=== PATIENT | female | born 2005 | race Hispanic/Latino ===

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

== ENCOUNTER 2024-06-07 14:43 | Emergency (ER) | payer MEDICAID, OTHER ==
[~2024-06-07] VITALS: Ht 162.6 cm; Wt 113.4 kg
[~2024-06-07 14:43] MED LIST: D-ME1POW16 PO; OSEL75 PO
[2024-06-07 14:57] VITALS: BP 162/86; PULSE 71; RESP 18
[2024-06-07] MEDS ORDERED: AMOX-426 PO (15:32)
== END 2024-06-07 17:02 | disposition home or self-care (01) ==
LOC: EDH 14:43
DX: L02.211 Cutaneous abscess of abdominal wall (principal); E10.9 Type 1 diabetes mellitus without complications; Z79.899 Other long term (current) drug therapy
CPT/HCPCS: 10060; 82948

== ENCOUNTER 2025-05-16 20:22 | Emergency (ER) | payer MEDICAID ==
[~2025-05-16] VITALS: Ht 157.5 cm; Wt 113.4 kg
[~2025-05-16 20:22] MED LIST changes: +AMOX-426 PO
[2025-05-16 20:51] LABS: APPEARANCE,URINE CLEAR (CLEAR); BILIRUBIN,URINE NEGATIVE (NEGATIVE); COLOR,URINE COLORLESS (YELLOW); GLUCOSE, URINE (UA) >=1000 mg/dL (NEGATIVE); KETONES,URINE 5 mg/dL (NEGATIVE); LEUKOCYTE ESTERASE ,URINE NEGATIVE Leu/uL (NEGATIVE); NITRATE,URINE NEGATIVE (NEGATIVE); OCCULT BLOOD,URINE NEGATIVE (NEGATIVE); PROTEIN,URINE NEGATIVE (NEGATIVE); SQUAMOUS EPITHELIAL CELL,UR MANY /HPF (0-2); UROBILINOGEN,URINE 0.2 mg/dL (0.2-1.0); WBC,URINE 0-1 /HPF (0-1)
[2025-05-16 20:53] LABS: BASOPHILS # (AUTO) 0.04 K/uL (0.00-0.20); BASOPHILS % (AUTO) 0.3 % (0.0-5.0); EOSINOPHILS # (AUTO) 0.17 K/uL (0.00-0.70); EOSINOPHILS % (AUTO) 1.3 % (0.0-8.0); IMMATURE GRANULOCYTE ABSOLUTE 0.06 K/uL (0-1); LYMPHOCYTES # (AUTO) 3.6 K/uL (1.0-4.8); LYMPHOCYTES % (AUTO) 28.3 % (21.0-51.0); MEAN CORPUSCULAR HEMOGLOBIN 30.9 pg (27.0-33.0); MEAN CORPUSCULAR HGB CONC 36.9 g/dL (32.0-36.0); MEAN CORPUSCULAR VOLUME 83.7 fL (80-100); MONOCYTES # (AUTO) 0.7 K/uL (0.1-1.0); MONOCYTES % (AUTO) 5.2 % (3.0-13.0); NEUTROPHILS # (AUTO) 8.3 K/uL (1.8-7.7); NEUTROPHILS % (AUTO) 64.4 % (40.0-77.0); PLATELET COUNT (AUTO) 300 K/uL (130-400); RED BLOOD CELL COUNT(AUTO) 4.66 MIL/uL (4.00-5.50); WHITE BLOOD COUNT (AUTO) 12.8 K/uL (4.8-10.8)
[2025-05-16 21:02] LABS: CREATININE 0.7 mg/dL (0.5-1.0); POTASSIUM 3.6 mmol/L (3.5-5.1)
[2025-05-16] MEDS: acetaMINOPHEN 325 MG TAB PO ONE (21:17)
[2025-05-16] MEDS: 0.9%NACL 1000ML 1,000 ML IV ONE (21:50)
[2025-05-16] MEDS: INSULIN humuLIN R 100 UNIT/ML 3ML SQ ONE ×3 (21:53→23:35)
[2025-05-16] MEDS ORDERED: INSULIN humuLIN R 100 UNIT/ML 3ML SQ ONE (22:30)
--- NOTE | 2025-05-16 22:51 | ERN ---
General Chief Complaint: OB<20 weeks gest. Stated Complaint: STOMACH CRAMPING/ UNABLE TO KEEP FOOD DOWN Time Seen by MD: 20:23 Time Seen by Midlevel: 20:23 Source: patient History of Present Illness Initial Comments 20-year-old female presents to the emergency department stating she had a positive test at home and wanted to confirmed . The patient is complaining of lower abdominal cramping but denies any fever, dysuria, hematuria, vaginal bleeding or further associated symptoms. A0. PMHx DM. Patient is noncompliant and has not been taking her diabetes medication. Allergies: Coded Allergies: No Known Drug Allergies (Unverified Allergy, Unknown, 12/21/19) Home Meds Active Scripts Amoxicillin/Potassium Clav (Augmentin 500-125 Tablet) 500 Mg-125 Mg Tablet, 1 EACH PO BID for 10 Days, #20 TAB Prov:DEBBI REED DO 06/07/24 D-Methorphan/PE/Acetaminophen (Theraflu Ms Severe Cold Pckt) 1 Each Powd.pack, 1 EACH PO QIDP, #20 PACK Prov:MIKE MAGAÑA 03/06/22 Oseltamivir Phosphate (Tamiflu) 75 Mg Cap, 75 MG PO BID for 5 Days, #10 CAP Prov:MIKE MAGAÑA 03/06/22 Past Medical History Past Medical History: Diabetes-Type II Medical History Other: Obesity, tobacco abuse Past Surgical History: None Family History Family History: Negative Social History Social History: Smokers Female( History) LMP: Mar 12, 2025 : 1 Para: 0 Aborts: 0 ROS Dictation Constitutional: Negative for fever,chills, and weight loss Eyes: Negative for injury, pain,redness, and discharge ENT: Negative for injury,pain or swelling Cardiovascular: Negative for chest pain, palpitations, and edema Respiratory: Negative for shortness of breath, cough, and wheezing, Abdomen/GI: Positive for lower abdominal cramping Negative for nausea, vomiting, diarrhea, and constipation Back: Negative for injury and pain : Negative for painful urination, bleeding or discharge MS/Extremity: Negative for injury and deformity Skin: Negative for rash, and discoloration Neuro: Negative for headache, weakness, numbness, tingling, and seizure Psych: Negative for suicide ideation, homicidal ideation, and hallucinations Physical Exam Physical Exam Dictation General: awake, alert, no acute distress Head/Face: Normocephalic, atraumatic Eyes: PERRL, EOMI, normal conjuctiva ENT: oral cavity clear, oral mucosa moist Neck: Supple, normal range of motion Cardiovascular: RRR, normal S1/S2 Respiratory: CTAB, no respiratory distress, no rales or wheezes Abdomen: Soft, non-tender, non-distended, no guarding or rebound. Skin: Warm, dry, normal turgor, no rash MS/Extremity: Pulses equal, no cyanosis, neurovascular intact, FROM Neuro: COAx4, GCS 15, strength 5/5, CN 2-12 intact, normal cerebellar exam, normal gait, Psych: Normal behavior, mood, and affect normal Results Laboratory and Microbiology Lab and Micro Result Laboratory Tests Test 05/16/25 20:40 05/16/25 20:45 05/16/25 22:22 05/16/25 23:16 Urine Color COLORLESS (YELLOW) Urine Appearance CLEAR (CLEAR) Urine pH 6.0 (5.0-8.0) Urine Specific Cyril 1.026 (1.001-1.031) Urine Protein NEGATIVE mg/dL (NEGATIVE) Urine Glucose (UA) >=1000 mg/dL (NEGATIVE) H Urine Ketones 5 mg/dL (NEGATIVE) H Urine Occult Blood NEGATIVE (NEGATIVE) Urine Nitrate NEGATIVE (NEGATIVE) Urine Bilirubin NEGATIVE mg/dL (NEGATIVE) Urine Urobilinogen 0.2 mg/dL (0.2-1.0) Urine Leukocyte Esterase NEGATIVE Jordan/uL Urine RBC 2-5 /HPF (0-1) H Urine WBC 0-1 /HPF (0-1) Urine Squamous Epithelial Cells MANY /HPF (0-2) Urine Bacteria None /HPF (None Seen) White Blood Count 12.8 K/uL (4.8-10.8) H Red Blood Count 4.66 MIL/uL (4.00-5.50) Hemoglobin 14.4 g/dL (12.0-16.0) Hematocrit 39.0 % (36-48) Mean Corpuscular Volume 83.7 fL (80-100) Mean Corpuscular Hemoglobin 30.9 pg (27.0-33.0) Mean Corpuscular Hemoglobin Concent 36.9 g/dL (32.0-36.0) H Red Cell Distribution Width 12.0 % (11.0-15.5) Platelet Count 300 K/uL (130-400) Mean Platelet Volume 11.4 fL (7.5-10.5) H Immature Granulocyte % (Auto) 0.5 % (0-1) Neutrophils (%) (Auto) 64.4 % (40.0-77.0) Lymphocytes (%) (Auto) 28.3 % (21.0-51.0) Monocytes (%) (Auto) 5.2 % (3.0-13.0) Eosinophils (%) (Auto) 1.3 % (0.0-8.0) Basophils (%) (Auto) 0.3 % (0.0-5.0) Neutrophils # (Auto) 8.3 K/uL (1.8-7.7) H Lymphocytes # (Auto) 3.6 K/uL (1.0-4.8) Monocytes # (Auto) 0.7 K/uL (0.1-1.0) Eosinophils # (Auto) 0.17 K/uL (0.00-0.70) Basophils # (Auto) 0.04 K/uL (0.00-0.20) Absolute Immature Granulocyte (auto 0.06 K/uL (0-1) Nucleated Red Blood Cells 0.0 % (0.0-0.19) Red Blood Cell Morphology See comments Sodium Level 131 mmol/L (136-145) L Potassium Level 3.6 mmol/L (3.5-5.1) Chloride Level 96 mmol/L (101-111) L Carbon Dioxide Level 29 mmol/L (21-32) Blood Urea Nitrogen 7 mg/dL (7-18) Creatinine 0.7 mg/dL (0.5-1.0) Glomerular Filtration Rate Calc 126 mL/min (>90) Random Glucose 397 mg/dL (70-105) H Total Calcium 9.3 mg/dL (8.5-10.1) Human Chorionic Gonadotropin, Quant 4025 mIU/mL (0-5) H Whole Blood Glucose 274 MG/DL (70-110) H 274 MG/DL (70-110) H Test 05/16/25 23:54 Whole Blood Glucose 258 MG/DL (70-110) H Labs Reviewed?: Yes MDM MDM: Differential diagnosis: , hyperglycemia, UTI Rationale: 20-year-old female presents to the emergency department stating she had a positive test at home and wanted to confirmed . The patient is complaining of lower abdominal cramping but denies any fever, dysuria, hematuria, vaginal bleeding or further associated symptoms. A0. PMHx DM. Patient is noncompliant and has not been taking her diabetes medication. Per physical examination patient is in no acute distress, abdomen is soft nontender. Labs obtained show mild leukocytosis WBCs 12.8, hyponatremia 131, hypochloremia 96, initial glucose 397, hCG 4025. IV fluids and 10 units of insulin were administered glucose of 274, five more units of insulin administered repeat glucose 274. An additional 5 units of insulin given glucose of 258. Patient was educated on findings and diagnosis. Advised to follow up with OBGYN. Return to the emergency department if any worsening symptoms. Patient verbalized understanding. Patient stable for discharge. There are no social concerns with this patient. I independently interpreted the test that were performed, results were reviewed by me and considered findings on radiology if ordered. Medical management and examination interpretation discussions were had by me with other qualified healthcare professionals as indicated for the patient's care. ED Course Orders Procedure Category Date Status Time Cbc With Differential LAB 05/16/25 Complete 20:29 Basic Metabolic Panel LAB 05/16/25 Complete 20:29 Urinalysis LAB 05/16/25 Complete W/Microscopic 20:29 Hcg,Quantitative LAB 05/16/25 Complete 20:29 Acetaminophen 325 Tab PHA 05/16/25 Complete (Tylenol 325mg Tab 20:30 0.9%Nacl 1000ml (Ns PHA 05/16/25 Complete 1000ml) 22:00 Insulin Regular, PHA 05/16/25 Complete Human 3ml (Humulin R 22:00 Bedside Glucose CPOE 05/16/25 Transmitted Fingerstick 22:18 Insulin Regular, PHA 05/16/25 Complete Human 3ml (Humulin R 22:30 Insulin Regular, PHA 05/16/25 Complete Human 3ml (Humulin R 23:00 Insulin Regular, PHA 05/16/25 Complete Human 3ml (Humulin R 23:00 Current Medications Medications (Trade) Dose Ordered Sig/Herve Route PRN Reason Start Time Stop Time Status Last Admin Dose Admin Acetaminophen (TYLenol 325MG TAB) 650 mg ONCE ONCE PO 05/16/25 20:30 05/16/25 20:32 DC 6/24/25 21:17 Insulin Human Regular (humuLIN R 100 UNIT/ML 3ML) 5 unit ONCE ONCE SQ 05/16/25 23:00 05/16/25 23:01 DC 05/16/25 22:46 Insulin Human Regular (humuLIN R 100 UNIT/ML 3ML) 5 unit ONCE ONCE SQ 05/16/25 23:00 05/16/25 23:01 DC 05/16/25 23:35 Insulin Human Regular (humuLIN R 100 UNIT/ML 3ML) 10 unit ONCE ONCE SQ 05/16/25 22:00 05/16/25 22:01 DC 05/16/25 21:53 Insulin Human Regular (humuLIN R 100 UNIT/ML 3ML) 10 unit ONCE ONCE SQ 05/16/25 22:30 05/16/25 22:42 DC Sodium Chloride 1,000 ml @ 0 mls/hr ONCE ONCE IV 05/16/25 22:00 05/16/25 22:01 DC 05/16/25 21:50 Vital Signs Date Time Temp Pulse Resp B/P (MAP) Pulse Ox O2 Delivery O2 Flow Rate FiO2 05/16/25 23:59 98.4 82 18 132/68 99 Room Air* 0 05/16/25 22:19 98.6 81 20 148/72 98 Room Air* 0 05/16/25 21:07 98.4 88 18 154/88 97 Room Air* 0 05/16/25 20:30 98.2 88 18 150/95 97 Room Air 0 DX & DISP Disposition: Discharge Departure Impression: Primary Impression: Additional Impression: Hyperglycemia Condition: Stable Additional Instructions: Discharge home. Rest. Follow up with primary care DrRohan in 24 hours. Return to the ER for any acute changes or worsening symptoms. If any medications were prescribed take as directed. Okay to continue home medications unless otherwise discussed during your visit in the emergency room today. Patient was also advised to follow-up with primary care physician in 1 to 2 days for continued monitoring. Referrals: SELF,REFERRAL (PCP) GRAZYNA VELA MD, ANNABELLE MD I performed the substantive portion of the visit. I have reviewed and personally made and approve the management plan that is documented in the notes by myself or the JASS. I acknowledge full responsibility for the patient's management plan. PIPO DOUGHERTY May 16, 2025 22:51
[2025-05-16 23:59] VITALS: BP 132/68; PULSE 82; RESP 18; TEMP 98.5; O2SAT 99
== END 2025-05-17 00:06 | disposition home or self-care (01) ==
LOC: EDH 20:22
DX: O24.112 Pre-existing type 2 diabetes mellitus, in pregnancy, second trimester (principal); E11.65 Type 2 diabetes mellitus with hyperglycemia; O99.212 Obesity complicating pregnancy, second trimester; R10.2 Pelvic and perineal pain; F17.200 Nicotine dependence, unspecified, uncomplicated; Z79.899 Other long term (current) drug therapy; Z3A.00 Weeks of gestation of pregnancy not specified
CPT/HCPCS: 99284; 96360; 96361; 80048; 84702; 85025; 82948 ×3; 81001; 36415; 96372 ×3; J1815 ×3; J7030